=== PATIENT | male | born 1950 | race Caucasian/White ===

== ENCOUNTER 2024-03-12 07:16 | Outpatient (CLI) | payer MEDICARE, SELFPAY ==
--- NOTE | 2024-03-12 10:13 | W.ANESCHARGE ---
Anesthesia Charges Start Date/Time Anesthesia Start Date: 03/12/24 Stop Date/Time Anesthesia Stop Date: 03/12/24 Summary Extremes of Age - Over 70 or under 1: MDA
--- NOTE | 2024-03-12 10:15 | W.ANESCHARGE ---
Anesthesia Charges Start Date/Time Anesthesia Start Date: 03/12/24 Anesthesia Start Time: 09:25 Stop Date/Time Anesthesia Stop Date: 03/12/24 Anesthesia Stop Time: 09:56 Summary Extremes of Age - Over 70 or under 1: [employer]LE [employer]OR
== END 2024-03-12 07:17 | disposition home or self-care (01) ==
LOC: OP CLINIC 07:17
PROVIDERS: PCP Family Medicine; Visit Provider Internal Medicine
DX: Z12.11 Encounter for screening for malignant neoplasm of colon (principal); K63.5 Polyp of colon
CPT/HCPCS: 00811; 45385; 88305; 99100; J2704

== ENCOUNTER 2024-03-20 10:53 | Outpatient (CLI) | payer MEDICARE, SELFPAY | END 2024-03-20 10:54 | disposition home or self-care (01) | LOC: NFLDREF 03-22 10:47 | PROVIDERS: PCP Family Medicine; Referring Provider Family Medicine; Visit Provider Family Medicine | DX: R53.83 Other fatigue (principal); I10 Essential (primary) hypertension; E78.5 Hyperlipidemia, unspecified; M85.80 Other specified disorders of bone density and structure, unspecified site; I25.9 Chronic ischemic heart disease, unspecified; R19.4 Change in bowel habit; Z12.5 Encounter for screening for malignant neoplasm of prostate | CPT/HCPCS: 80053; 80061; 82306; 84443; G0103 ==